=== PATIENT | female | born 1950 | race Caucasian/White ===

== ENCOUNTER 2016-12-04 07:07 | Day surgery (SDC) | payer MEDICARE, OTHER ==
[~2016-12-04 07:07] MED LIST: ALEVE220 M3 PO; ALLOPURINOL300 M1 PO; ALLOPURINOL300 MG PO; ASPIR 8181 M1 PO; ASPIR 8181 MG PO; BEE WITH C1 CAP PO; BIOTIN PO; CALCIUM + D SO1 EAC1 PO; CALCIUM + D T1 UDTAB PO; CELEBREX200 MG PO; CO Q-10300 MG PO; COLACE100 M1 PO; COLACE100 MG PO; CRESTOR10 MG PO; CRESTOR10 MG/TAB PO; FISH OIL 1,2001 CAP PO; FLONASE16 G3 NS; FLONASE16 GM NS; GARLIC1 CAP PO; GLUCOSAMINE750 MG PO; LINZESS145 MC1 PO; LIVALO2 M1 PO; MAGNESIUM250 M1 PO; MAGNESIUM250 M2 PO; MEGA RED; MIRALAX17 G2 PO; MULTIVITAMIN1 CAP PO; NEURONTIN800 M1 PO; NEUROPATHY SUPPORT PO; PEPCID20 M1 PO; PRAVACHOL40 MG PO; PRILOSEC20 M1 PO; PRILOSEC20 MG PO; PROBIOTIC1 EA10 PO; TYLENOL PM EX-1 EAC4 PO; TYLENOL PM EX-1 EACH PO; VITAMIN B; VITAMIN D31000 UNIT PO; ZYRTEC10 MG PO; [UNRECOGNIZED DRUG - CODE] PO; [UNRECOGNIZED DRUG - OTHER] PO
[2016-12-04 08:18] LABS: BASO % 0.4 % (0-2); EOS % 3.5 % (0-7); EOSINOPHIL ABSOLUTE COUNT 0.2 tho/cmm (0.0-0.7); HCT-HEMATOCRIT 41.6 % (34.0-49.0); IMMATURE GRANULOCYTES ABSOLUTE 0.01 tho/cmm (0-0.03); IMMATURE GRANULOCYTES PERCENT 0.2 % (0-0.3); LYMPH % 27.6 % (20-45); LYMPH ABSOLUTE COUNT 1.5 tho/cmm (0.8-4.5); MCHC MEAN CORPUSCULAR HGB CONC 33.7 % (32.0-36.0); MCV (MEAN CELL VOLUME) 89.1 fl (82.0-96.0); MEAN PLATELET VOLUME 9.7 cmc (9.4-12.4); MONO % 9.9 % (0-12); MONOCYTE ABSOLUTE COUNT 0.5 tho/cmm (0.0-1.2); NEUTROPHIL ABSOLUTE COUNT 3.2 tho/cmm (1.6-8.0); NEUTROPHIL-AUTOMATED 3.2 tho/cmm (1.6-8.0); NEUTROPHILS % 58.4 % (40-80); PLATELET COUNT 232 tho/cmm (150-450); RED BLOOD COUNT 4.67 mil/cmm (4.00-5.20); RED CELL DISTRIBUTION WIDTH 12.8 % (12.4-16.4); WHITE BLOOD COUNT 5.4 tho/cmm (4.0-10.0)
[2016-12-04 08:32] LABS: ANION GAP 13 mmol/L (0-20); BLOOD UREA NITROGEN 4 mg/dl (6-24); CALCIUM 8.7 mg/dl (8.5-10.5); CARBON DIOXIDE-VENOUS 25 mmol/L (22-32); CHLORIDE 107 mmol/l (96-110); CREATININE 0.66 mg/dl (0.50-1.10); GLUCOSE 118 mg/dL (70-110); SODIUM 141 mmol/L (135-145); eGFR VALUE FOR BLACK >90 mL/Min
[2016-12-04 08:53] LABS: POTASSIUM 3.6 mmol/L (3.7-5.1)
== END 2016-12-04 10:44 ==
LOC: ENDOS 07:07 → SHSA 07:08 → ENDOS 08:45
PROVIDERS: Anesthesiology
PROC: 0DBL8ZZ Excision of Transverse Colon, Via Natural or Artificial Opening Endoscopic (ICD-10-PCS; principal; 2016-12-04)
PROC: 0DB58ZX Excision of Esophagus, Via Natural or Artificial Opening Endoscopic, Diagnostic (ICD-10-PCS; 2016-12-04)
PROC: 0DB68ZX Excision of Stomach, Via Natural or Artificial Opening Endoscopic, Diagnostic (ICD-10-PCS; 2016-12-04)
DX: K29.50 Unspecified chronic gastritis without bleeding (principal); K63.89 Other specified diseases of intestine; K57.30 Diverticulosis of large intestine without perforation or abscess without bleeding; K64.8 Other hemorrhoids; I10 Essential (primary) hypertension; E78.5 Hyperlipidemia, unspecified; M19.90 Unspecified osteoarthritis, unspecified site; M10.9 Gout, unspecified; G62.9 Polyneuropathy, unspecified; F41.9 Anxiety disorder, unspecified; K21.9 Gastro-esophageal reflux disease without esophagitis; Z79.899 Other long term (current) drug therapy; Z88.5 Allergy status to narcotic agent; Z88.8 Allergy status to other drugs, medicaments and biological substances; Z80.0 Family history of malignant neoplasm of digestive organs; Z86.010 Personal history of colon polyps; Z87.11 Personal history of peptic ulcer disease; Z90.710 Acquired absence of both cervix and uterus; Z90.89 Acquired absence of other organs; Z90.49 Acquired absence of other specified parts of digestive tract; Z98.890 Other specified postprocedural states